=== PATIENT | female | born 1985 | race American Indian/Alaskan Native ===

== ENCOUNTER 2017-07-23 00:12 | Outpatient (CLI) | payer MEDICAID ==
[2017-07-23 01:34] VITALS: BP 104/67
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
== END 2017-07-23 01:45 | disposition home or self-care (01) ==
LOC: TRG 00:12
PROVIDERS: ATTEND Obstetrics & Gynecology
DX: O47.02 False labor before 37 completed weeks of gestation, second trimester (principal); O99.332 Smoking (tobacco) complicating pregnancy, second trimester; F17.210 Nicotine dependence, cigarettes, uncomplicated; Z3A.21 21 weeks gestation of pregnancy
CPT/HCPCS: 59025; 76815

== ENCOUNTER 2019-10-05 23:49 | Emergency (ER) | payer MEDICAID ==
[2019-10-06 02:27] VITALS: BP 126/85
[2019-10-06 03:44] LABS: HCG Qualitative,Urine Negative (Negative)
--- NOTE | 2019-10-06 04:32 | XRay Report ---
RIGHT THUMB 3 VIEWS 0424 INDICATION: right thumb swollen around nail COMPARISON: None available. FINDINGS: I do not have a true AP view of the thumb. No fractures or dislocations are seen. No soft tissue gas is noted. On one of the lateral projections a tiny density is seen just ventral to the distal phalanx midportion measuring less than 2 mm which is not duplicated on other views but possibly could be a tiny fragment of glass deep in the soft tiss ues. Signer Name: Tereso Kasper MD Signed: 10/06/2019 4:28 AM Workstation Name: [id number]
--- NOTE | 2019-10-06 08:13 | Emergency Department Report ---
ED General Adult HPI - General Chief complaint: Extremity Injury, Upper Stated complaint: INFECTION RT THUMB PUI?: No Time Seen by Provider: 10/06/19 07:29 Source: patient Mode of arrival: Ambulatory Limitations: No Limitations - History of Present Illness Initial comments: This is a 34-year-old female with no prior medical history presents the ED complaining of right thumb swelling and pain for the past couple of weeks. Patient states about 2 to 3 weeks ago she got a piece of glass from her phone stocking the finger. Patient states that she did try to do get out and thought she got it out. Patient states that about a week ago she started noticing swelling around the tip of her finger nailbed. Patient states that throbbing pain and swelling to the area. She denies any pus drainage. She denies fever/chills/nausea vomiting/abdominal pain or any other problems. - Related Data Previous Rx's Medication Instructions Recorded Last Taken Type Azithromycin [Zithromax Z-KYLE] 250 mg PO DAILY #6 tab 03/01/15 Unknown Rx Guaifenesin/Pseudoephedrne HCl 1 each PO Q12HR #20 tab.er.12h 03/01/15 Unknown Rx [Mucinex D ER 600-60 mg Tablet] cephALEXin [Keflex] 500 mg PO Q12HR #10 cap 10/06/19 Unknown Rx Allergies Allergy/AdvReac Type Severity Reaction Status Date / Time No Known Allergies Allergy Unverified 03/01/15 19:03 ED Review of Systems ROS: Stated complaint: INFECTION RT THUMB Other details as noted in HPI Comment: All other systems reviewed and negative ED Past Medical Hx - Past Medical History Previous Medical History?: No - Surgical History Past Surgical History?: Yes Additional Surgical History: C- SECTION X 2 - Social History Smoking Status: Current Some Day Smoker - Medications Home Medications: Home Medications Medication Instructions Recorded Confirmed Last Taken Type Azithromycin [Zithromax Z-KYLE] 250 mg PO DAILY #6 tab 03/01/15 Unknown Rx Guaifenesin/Pseudoephedrne HCl 1 each PO Q12HR #20 tab.er.12h 03/01/15 Unknown Rx [Mucinex D ER 600-60 mg Tablet] cephALEXin [Keflex] 500 mg PO Q12HR #10 cap 10/06/19 Unknown Rx ED Physical Exam - General Limitations: No Limitations General appearance: alert, in no apparent distress - Head Head exam: Present: atraumatic, normocephalic - Eye Eye exam: Present: normal appearance - ENT ENT exam: Present: mucous membranes moist - Neck Neck exam: Present: normal inspection - Respiratory Respiratory exam: Present: normal lung sounds bilaterally. Absent: respiratory distress - Cardiovascular Cardiovascular Exam: Present: regular rate, normal rhythm. Absent: systolic murmur, diastolic murmur, rubs, gallop - GI/Abdominal GI/Abdominal exam: Present: soft, normal bowel sounds - Extremities Exam Extremities exam: Present: normal inspection, full ROM, tenderness (To palpation of the right thumb but the nailbed, consistent with paronychia), normal capillary refill. Absent: pedal edema, joint swelling - Back Exam Back exam: Present: normal inspection - Neurological Exam Neurological exam: Present: alert, oriented X3 - Psychiatric Psychiatric exam: Present: normal affect, normal mood - Skin Skin exam: Present: warm, dry, intact, normal color. Absent: rash ED Course Vital Signs 10/06/19 02:22 Temperature 98.1 F Pulse Rate 72 Respiratory 16 Rate Blood Pressure 126/85 O2 Sat by Pulse 99 Oximetry ED Medical Decision Making - Radiology Data Radiology results: report reviewed Fluoro Time In Minutes: RIGHT THUMB 3 VIEWS 423 INDICATION: right thumb swollen around nail COMPARISON: None available. FINDINGS: I do not have a true AP view of the thumb. No fractures or dislocations are seen. No soft tissue gas is noted. On one of the lateral projections a tiny density is seen just ventral to the distal phalanx midportion measuring less than 2 mm which is not duplicated on other views but possibly could be a tiny fragment of glass deep in the soft tissues. Signer Name: Tereso Kasper MD Signed: 10/06/2019 4:28 AM Workstation Name: [id number] Transcribed By: GJ Dictated By: Tereso Kasper MD Electronically Authenticated By: Tereso Kasper MD Signed Date/Time: 10/06/19 0428 - Medical Decision Making 34-year-old female presents with paronychia of the right thumb. Anesthesia was a obtained with 1 cc of lidocaine Paronychia was cleaned with Betadine, small half a centimeter slit was made at the nailbed, minimal drainage of pus. Return voids drained cleaned and sterilely wrapped. Discussed follow-up with primary care physician in 3 to 4 days. Discussed antibiotic therapy for bacterial prophylaxis and treatment. Vital signs are normal patient is in no acute distress Critical care attestation.: If time is entered above; I have spent that time in minutes in the direct care of this critically ill patient, excluding procedure time. ED Disposition Clinical Impression: Paronychia of finger of right hand Disposition: DC-01 TO HOME OR SELFCARE Is pt being admited?: No Does the pt Need Aspirin: No Condition: Stable Instructions: Paronychia (ED) Additional Instructions: Make sure to follow up with the primary care physician as discussed. Take all your medications as you've been prescribed. If you have any worsening symptoms or develop new symptoms please return to ED immediately. Prescriptions: cephALEXin [Keflex] 500 mg PO Q12HR #10 cap Referrals: PRIMARY CARE, [Primary Care Provider] - 3-5 Days [facility] [Outside] - 3-5 Days [facility] [Outside] - 3-5 Days Forms: Work/School Release Form(ED) Time of Disposition: 08:24
== END 2019-10-06 08:46 | disposition home or self-care (01) ==
LOC: ED 23:49
DX: L03.011 Cellulitis of right finger (principal); F17.200 Nicotine dependence, unspecified, uncomplicated; Z98.890 Other specified postprocedural states; Z79.2 Long term (current) use of antibiotics; Z79.899 Other long term (current) drug therapy
CPT/HCPCS: 81025